=== PATIENT | female | born 1980 | race Two or more races ===

== ENCOUNTER → 2022-06-11 | Emergency (ER) | payer OTHER ==
[~2022-06-11] VITALS: Ht 162.6 cm; Wt 72.6 kg
[~2022-06-11] MED LIST: KETO10TA2 PO; ORASEP SPRAY30 ML MM; ZITHROMAX500 MG PO
== END | disposition home or self-care (01) ==
LOC: ER 02:59
DX: J06.9 Acute upper respiratory infection, unspecified (principal)

== ENCOUNTER 2023-01-18 08:57 | Emergency (ER) | payer OTHER ==
[~2023-01-18] VITALS: Ht 160 cm; Wt 74.8 kg
== END 2023-01-18 12:35 | disposition home or self-care (01) ==
LOC: ER 08:57
DX: R42 Dizziness and giddiness (principal); Z88.8 Allergy status to other drugs, medicaments and biological substances